=== PATIENT | female | born 1940 | race Caucasian/White ===

== ENCOUNTER 2018-07-15 14:30 | Emergency (ER) | payer MEDICARE ==
[~2018-07-15] VITALS: Ht 160 cm; Wt 68.0 kg
[~2018-07-15 14:30] MED LIST: ACEROLA C500 MG PO; ADULT LOW DOSE81 MG PO; ALBUTEROL SULF8.5 GM INH; AZITHROMYCIN250 MG PO; CARVEDILOL6.25 MG PO; COUMADIN5 MG PO; DILTIAZEM ER240 MG PO; DOXYCYCLINE HY100 MG PO; FOLBIC TABLET1 EACH PO; GLIPIZIDE XL5 MG PO; GLIPIZIDE5 MG PO; GLUCOPHAGE XR500 MG PO; KLOR-CON M2020 MEQ PO; LISINOPRIL5 MG PO; MACUVITE EYE C1 EACH PO; MAG-OXIDE400 MG PO; METFORMIN HCL500 MG PO; NORCO 5-325 TA1 EACH PO; PREDNISONE20 MG PO; PROVENTIL HFA6.7 GM INH; TORSEMIDE5 MG PO; TYLENOL EXTRA500 MG PO; VENTOLIN HFA18 GM INH; VITAMIN A8000 UNIT PO; VITAMIN B122500 MCG PO; VITAMIN D31000 UNIT PO; WARFARIN SODIUM5 MG PO; ZITHROMAX250 MG PO
== END 2018-07-15 15:44 | disposition home or self-care (01) ==
LOC: ED 14:30
PROC: 0HQFXZZ Repair Right Hand Skin, External Approach (ICD-10-PCS; principal; 2018-07-15)
DX: S61.411A Laceration without foreign body of right hand, initial encounter (principal); S60.011A Contusion of right thumb without damage to nail, initial encounter; I12.9 Hypertensive chronic kidney disease with stage 1 through stage 4 chronic kidney disease, or unspecified chronic kidney disease; N18.4 Chronic kidney disease, stage 4 (severe); E11.22 Type 2 diabetes mellitus with diabetic chronic kidney disease; I48.91 Unspecified atrial fibrillation; F17.200 Nicotine dependence, unspecified, uncomplicated; Z88.5 Allergy status to narcotic agent; Z79.899 Other long term (current) drug therapy; W19.XXXA Unspecified fall, initial encounter
CPT/HCPCS: 12001; 73110; 73130; 90471; 90715; 99283

== ENCOUNTER 2020-09-21 16:54 | Emergency (ER) | payer MEDICARE ==
[~2020-09-21] VITALS: Ht 160 cm; Wt 68.0 kg
[~2020-09-21 16:54] MED LIST changes: +DILT-XR240 MG PO
[2020-09-21] MEDS ORDERED: ONDANSETRON ODT4 MG PO (18:43)
[2020-09-21] MEDS ORDERED: NORCO 5-325 TA1 EACH PO (18:43)
== END 2020-09-21 19:02 | disposition home or self-care (01) ==
LOC: ED 16:54
DX: S22.32XA Fracture of one rib, left side, initial encounter for closed fracture (principal); W00.0XXA Fall on same level due to ice and snow, initial encounter; E11.22 Type 2 diabetes mellitus with diabetic chronic kidney disease; I12.9 Hypertensive chronic kidney disease with stage 1 through stage 4 chronic kidney disease, or unspecified chronic kidney disease; N18.4 Chronic kidney disease, stage 4 (severe); I48.91 Unspecified atrial fibrillation; F17.200 Nicotine dependence, unspecified, uncomplicated; Z88.5 Allergy status to narcotic agent; Z79.899 Other long term (current) drug therapy; Z79.82 Long term (current) use of aspirin; Z79.01 Long term (current) use of anticoagulants
CPT/HCPCS: 71046; 99283-25

== ENCOUNTER 2020-11-09 12:20 | Emergency (ER) | payer MEDICARE ==
[~2020-11-09] VITALS: Ht 160 cm; Wt 68.0 kg
[~2020-11-09 12:20] MED LIST changes: +ONDANSETRON ODT4 MG PO
--- NOTE | 2020-11-09 14:59 | EKG ---
[facility] [address] [facility] [place] [address] Signed Atrial fibrillation with premature ventricular or aberrantly conducted complexes and with ventricular escape complexes Left axis deviation ST \T\ T wave abnormality, consider anterolateral ischemia Abnormal ECG When compared with ECG of 22-FEB-2017 13:49, Sinus rhythm is now with ventricular escape complexes Vent. rate has decreased BY [address] now depressed in Anterolateral leads T wave inversion now evident in Anterolateral leads Confirmed by PRABHA GRADY DO ([id number]) on 11/09/2020 2:59:33 PM Electronically Signed By: PRABHA GRADY DO 11/09/20 1459 PATIENT NAME: Thomas MONTOYA Electrocardiogram DATE OF : 38 PHYSICIAN: PRABHA GRADY DO REPORT #: [id number] REPORT IS CONFIDENTIAL AND NOT TO BE RELEASED WITHOUT AUTHORIZATION
== END 2020-11-09 16:06 | disposition short-term general hospital (02) ==
LOC: ED 12:20
DX: I21.4 Non-ST elevation (NSTEMI) myocardial infarction (principal); Z20.822 Contact with and (suspected) exposure to COVID-19; N18.4 Chronic kidney disease, stage 4 (severe); E11.22 Type 2 diabetes mellitus with diabetic chronic kidney disease; I12.9 Hypertensive chronic kidney disease with stage 1 through stage 4 chronic kidney disease, or unspecified chronic kidney disease; I48.91 Unspecified atrial fibrillation; F17.200 Nicotine dependence, unspecified, uncomplicated; Z88.5 Allergy status to narcotic agent; Z79.899 Other long term (current) drug therapy; Z79.01 Long term (current) use of anticoagulants
CPT/HCPCS: 71045; 80053; 83735; 83880; 84484; 85025; 85379; 85610; 93005; 93010; 99285-25; C9803; J7030; U0003